=== PATIENT | female | born 1955 | race Caucasian/White ===

== ENCOUNTER → 2019-01-12 16:01 | Outpatient (CLI) | payer OTHER, SELFPAY | PROVIDERS: Referring Provider Otolaryngology Otolaryngology/Facial Plastic Surgery; Visit Provider Otolaryngology Otolaryngology/Facial Plastic Surgery | DX: J03.90 Acute tonsillitis, unspecified (principal) | CPT/HCPCS: 87070; 87077; 87186 ==

== ENCOUNTER 2021-07-19 09:36 | Emergency (ER) | payer MEDICARE, OTHER, SELFPAY ==
[2021-07-19 09:36] VITALS: BP 170/82; PULSE 59; RESP 18; TEMP 36.6; O2SAT 100; BMI 32.9
--- NOTE | 2021-07-19 09:55 | EKG12_ITS ---
Test Reason : CP Blood Pressure : / mmHG Vent. Rate : 059 BPM Atrial Rate : 059 BPM P-R Int : 174 ms QRS Dur : 092 ms QT Int : 418 ms P-R-T Axes : -11 014 017 degrees QTc Int : 413 ms Sinus bradycardia Otherwise normal ECG Confirmed by LILO PALAFOX, LESLY ([id number]), sports editor ARA SYLVESTER ([id number]) on 07/21/2021 9:10:28 AM Referred By: YONI Confirmed By:LESLY NAGY MD
--- NOTE | 2021-07-19 09:55 | EDS_ITS ---
HPI History of Present Illness Chief Complaint: Chest Pain Narrative Narrative: Patient presents with her because of left-sided chest pain/discomfort and armpit numbness that she has had for the last few days. She states the pain is been relatively constant, and waxes and wanes. It goes through to her back in the sense that she states that she has had arm pain, or pain in her wing. She denies any nausea or vomiting. No shortness of breath or diaphoresis. No exertional component. Past medical history includes hypertension but no hypercholesterolemia. She denies any family history of early AK at a young age. She denies any leg swelling. No exacerbating or alleviating factors. [facility] Medical History (Updated 07/19/21 @ 12:43 by Jose De La Cruz MD) Hypertension JULIETTE (obstructive sleep apnea) Allergy/AdvReac Type Severity Reaction Status Date / Time amoxicillin [From Augmentin] Allergy Hives Verified 07/19/21 09:39 clavulanic acid Allergy Hives Verified 07/19/21 09:39 [From Augmentin] Social History Smoking Status: Never smoker ROS ROS ED ROS Narrative Constitutional: No fever, no chills. HEENT: No sore throat. No neck pain. No loss of vision. No rhinorrhea. Cardiovascular: Positive left-sided chest pain. No palpitations. No pedal edema. Respiratory: No cough, no shortness of breath. Abdominal: No abdominal pain. No nausea. No vomiting. Genitourinary: No dysuria. No hematuria. Musculoskeletal: No myalgias. No arthralgias. Neurologic: No headaches currently. No dizziness. No lightheadedness. Skin: No rash. No change in color. Psychiatric: No depression. No anxiety. EXAM Physical Exam Narrative Exam Narrative: Afebrile. Vital signs noted. HEENT: Normocephalic. Atraumatic. PERRL, EOMI. Neck soft and supple. No point tenderness or step off. Cardiovascular: Regular rate and rhythm with intermittent bradycardia. No murmurs, rubs, or gallops appreciated. Respiratory: No tachypnea. Lungs clear to auscultation bilaterally. Gastrointestinal: Abdomen soft, nontender, with normoactive bowel sounds. No rebound or guarding. Neurological: Awake. Alert. Nonfocal, nonlateralizing. Skin: No rash. Normal color. No pallor. Musculoskeletal: No pedal edema. Full range of motion extremities. Const Vital Signs: 07/19/21 09:36 07/19/21 10:01 07/19/21 11:53 Temperature 98 F Temperature Source Temporal Pulse Rate 59 L Respiratory Rate 18 Respiratory Effort Normal Non-Labored Blood Pressure 170/82 H Blood Pressure Mean 111 Pulse Ox 100 Oxygen Delivery Method Room Air Room Air 07/19/21 11:56 Temperature Temperature Source Pulse Rate 56 L Respiratory Rate 14 Respiratory Effort Blood Pressure 134/73 H Blood Pressure Mean 93 Pulse Ox 100 Oxygen Delivery Method Room Air Heart Score History: Slightly/Non-Suspicious ECG: Normal Age: >/= 65 years Risk Factors: 1 or 2 Risk Factors Troponin: </= Normal Limit Score: 3 MDM MDM MDM Narrative Medical decision making narrative: Her EKG demonstrates sinus bradycardia at 59 bpm. There is no acute ST elevation or STEMI. On the monitor her heart rate is now in the 60s. She does take atenolol at night for hypertension. She was administered an aspirin. Chest pain work-up was pursued. Her work-up is essentially unremarkable. Normal white count of 8.1, hemoglobin normal at 16.0 if not slightly elevated. Platelet count is normal at 290. E lectrolyte panel shows chloride 108, but otherwise unremarkable. Initial high- sensitivity troponin is negative at 4. Repeat 2 hours later is also negative at 4. Chest x-ray shows no acute radiographic evidence of acute cardiopulmonary disease. At this point in time, I do feel that she can be discharged safely home with follow-up. Her blood pressure has returned to an acceptable level at 134/73. I feel she be discharged safely home with follow-up. I do feel that she has a low heart score, and additionally I feel she has been ruled out by biomarkers. Return instructions were reviewed. Disposition is discharged home in stable condition. Lab Data Attestation: I reviewed the patient's lab results. Labs: Laboratory Results - last 24 hr 07/19/21 07/19/21 07/19/21 09:45 09:45 11:39 WBC 8.1 RBC 5.06 Hgb 16.0 H Hct 46.8 MCV 92.5 MCH 31.6 MCHC 34.2 RDW Std Deviation 43.2 RDW Coeff of Steven 12.8 Plt Count 290 MPV 9.6 Immature Gran % (Auto) 0.200 Neut % (Auto) 64.7 Lymph % (Auto) 26.4 [place] % (Auto) 6.9 Eos % (Auto) 1.1 Baso % (Auto) 0.7 Absolute Neuts (auto) 5.3 Absolute Lymphs (auto) 2.14 Nucleated RBC % 0 Sodium 140 Potassium 3.8 Chloride 108 H Carbon Dioxide 27.0 Anion Gap 5 BUN 14 Creatinine 0.72 Estim Creat Clear Calc 43.77 Est GFR (MDRD) Af Amer 103 Est GFR (MDRD) Non-Af 85 BUN/Creatinine Ratio 19.3 Glucose 113 H Calcium 9.1 Troponin I High Sens 4 4 Radiography Diagnostic Testing: Clinical Impression(s) from Imaging Studies Chest X-Ray 07/19/21 10:15 IMPRESSION: No radiographic evidence of acute cardiopulmonary disease. at 1035 Reported and signed by: Jp Ann MD Electronically Signed: Jp Ann MD at 10:34 EST , Discharge Plan Triage Chief Complaint: Chest Pain ED Provider: Jose De La Cruz Dx/Rx/DC Orders Clinical Impression: Chest discomfort, Left arm numbness Instructions: ED Chest Pain, Uncertain Cause Primary Care Provider: Marek Mcbride Referrals: Marek Mcbride MD [Primary Care Provider] - 1-2 Days if not improving Disposition Disposition: Home, Self Care
[2021-07-19 10:02] LABS: Absolute Lymphocyte Count 2.14 X10^3/uL (0.83-4.51); Absolute Neutrophil Count 5.3 X10^3/uL (2.0-7.7); Basophil# 0.06 X10^3/uL; Basophil% 0.7 % (0-1); Eosinophil# 0.09 X10^3/uL; Eosinophils% 1.1 % (0-5); Hematocrit 46.8 % (37-47); Lymphocyte # 2.14 X10^3/ul (0.83-4.51); Lymphocyte % 26.4 % (19-41); Mean Corp Hgb Conc 34.2 g/dL (32-36); Mean Corpuscular Hgb 31.6 pg (27.0-32.0); Mean Corpuscular Volume 92.5 fL (81-99); Mean Platelet Vol. 9.6 fl (6.2-12.0); Monocyte# 0.56 X10^3/uL; Monocyte% 6.9 % (0-10); NRBC Flagged by Analyzer 0 % (0-5); Neutrophil # 5.25 X10^3/uL (2.7-7.7); Neutrophil % 64.7 % (47-70); Platelet Count 290 K/mm3 (150-450); RBC Distribution Width CV 12.8 % (11.6-14.6); RBC Distribution Width SD 43.2 fl (35.1-43.9); Red Blood Count 5.06 M/mm3 (4.2-5.4); White Blood Count 8.1 K/mm3 (4.4-11.0)
[2021-07-19] MEDS: Aspirin 81 MG TAB.CHEW 324 MG PO (10:11)
--- NOTE | 2021-07-19 10:15 | RAD_ITS ---
History: chest pain EXAMINATION/TECHNIQUE: XR Chest 1 View: Portable COMPARISON: None FINDINGS: LINES/DEVICES: None. LUNGS: No consolidation, edema or effusion. No pneumothorax. MEDIASTINUM AND CARDIOVASCULAR STRUCTURES: Cardiac silhouette not enlarged. Central airways and mediastinal contour are unremarkable. BONES AND SOFT TISSUES: Unremarkable. RAD/Chest 1 View (Portable) IMPRESSION: No radiographic evidence of acute cardiopulmonary disease. at 1035 Reported and signed by: Jp Ann MD Electronically Signed: Jp Ann MD at 10:34 EST ,
[2021-07-19 10:27] LABS: Anion Gap 5 (5-15); BUN 14 mg/dL (7-18); BUN/Creat Ratio 19.3 RATIO (10-20); Calcium,Total 9.1 mg/dL (8.5-10.1); Chloride 108 mmol/L (98-107); Creatinine, Serum 0.72 mg/dL (0.55-1.02); EST Glomerular Filtration Rate 85 mL/min (>60); Est Glom Filt Rate - Afr Amer 103 mL/min (>60); Estimated Creatinine Clearance 43.77 ml/min; Glucose 113 mg/dL (74-106); Potassium 3.8 mmol/L (3.5-5.1); Sodium Level 140 mmol/L (136-145); Troponin-I HS 4 pg/mL (3.0-54.0)
[2021-07-19 11:56] VITALS: BP 134/73; PULSE 56; RESP 14; O2SAT 100
[2021-07-19 12:26] LABS: Troponin-I HS 4 pg/mL (3.0-54.0)
== END 2021-07-19 12:53 | disposition home or self-care (01) ==
PROVIDERS: Emergency Provider Emergency Medicine; PCP Family Medicine; Visit Provider Emergency Medicine
DX: R07.89 Other chest pain (principal); R20.0 Anesthesia of skin
CPT/HCPCS: 71045; 80048; 84484; 85025; 93005; 99285; A4216

== ENCOUNTER 2023-11-02 23:40 | Emergency (ER) | payer MEDICARE, OTHER, SELFPAY ==
[2023-11-02 23:41] VITALS: BP 116/85; PULSE 165; RESP 18; TEMP 36.9; O2SAT 97; BMI 31.1
--- NOTE | 2023-11-02 23:55 | EKG12_ITS ---
Test Reason : TACHYCARDIA Blood Pressure : / mmHG Vent. Rate : 163 BPM Atrial Rate : 000 BPM P-R Int : 000 ms QRS Dur : 078 ms QT Int : 292 ms P-R-T Axes : 000 031 001 degrees QTc Int : 480 ms Critical Test Result: High HR Supraventricular tachycardia Nonspecific ST and T wave abnormality Abnormal ECG Confirmed by LILO PALAFOX, LESLY ([id number]), state editor TIRSO WORLEY ([id number]) on 11/03/2023 10:30:02 AM Referred By: ALBINA Confirmed By:LESLY NAGY MD
[2023-11-03] MEDS: 0.9% Normal Saline (1000mL) 1,000 ML 999 ML IV (00:08)
[2023-11-03] MEDS: Adenosine 6 MG/2 ML Syringe IV (00:11)
--- NOTE | 2023-11-03 00:20 | EKG12_ITS ---
Test Reason : REPEAT Blood Pressure : / mmHG Vent. Rate : 082 BPM Atrial Rate : 082 BPM P-R Int : 172 ms QRS Dur : 084 ms QT Int : 380 ms P-R-T Axes : 043 039 029 degrees QTc Int : 443 ms Normal sinus rhythm Normal ECG Confirmed by LESLY NAGY MD ([id number]), field map editor TIRSO WORLEY ([id number]) on 11/03/2023 10:30:25 AM Referred By: ALBINA Confirmed By:LESLY NAGY MD
[2023-11-03 00:34] LABS: Absolute Lymphocyte Count 3.52 X10^3/uL (0.83-4.51); Absolute Neutrophil Count 7.2 X10^3/uL (2.0-7.7); Basophil# 0.09 X10^3/uL; Basophil% 0.8 % (0-1); Eosinophil# 0.18 X10^3/uL; Eosinophils% 1.5 % (0-5); Hemoglobin 15.1 g/dL (12.0-15.0); Lymphocyte # 3.52 X10^3/ul (0.83-4.51); Lymphocyte % 29.7 % (19-41); Mean Corp Hgb Conc 34.3 g/dL (32-36); Mean Corpuscular Hgb 31.1 pg (27.0-32.0); Mean Corpuscular Volume 90.7 fL (81-99); Mean Platelet Vol. 9.6 fl (6.2-12.0); Monocyte# 0.75 X10^3/uL; Monocyte% 6.3 % (0-10); NRBC Flagged by Analyzer 0 % (0-5); Neutrophil # 7.18 X10^3/uL (2.7-7.7); Neutrophil % 60.6 % (47-70); Platelet Count 367 K/mm3 (150-450); RBC Distribution Width CV 12.9 % (11.6-14.6); RBC Distribution Width SD 42.5 fl (35.1-43.9); Red Blood Count 4.85 M/mm3 (4.2-5.4); White Blood Count 11.9 K/mm3 (4.4-11.0)
[2023-11-03 00:41] VITALS: BP 100/57; PULSE 76; RESP 17; O2SAT 96
[2023-11-03 00:41] LABS: Anion Gap 9 (5-15); BUN 12 mg/dL (7-18); BUN/Creat Ratio 12.8 RATIO (10-20); Calcium,Total 9.2 mg/dL (8.5-10.1); Chloride 104 mmol/L (98-107); Creatinine, Serum 0.94 mg/dL (0.55-1.02); EST Glomerular Filtration Rate 63 mL/min (>60); Est Glom Filt Rate - Afr Amer 76 mL/min (>60); Estimated Creatinine Clearance 55.07 ml/min; Glucose 184 mg/dL (74-106); Magnesium 1.7 mg/dL (1.6-2.6); Potassium 3.6 mmol/L (3.5-5.1); Sodium Level 135 mmol/L (136-145); Thyroid Stim Hormone (TSH) 2.44 uIU/mL (0.358-3.74)
[2023-11-03 01:00] VITALS: BP 100/57; PULSE 77; RESP 21; O2SAT 97
--- NOTE | 2023-11-03 02:15 | EX.ED.DYSGE1 ---
HPI History of Present Illness Chief Complaint: Palpitations Informant: patient Narrative Narrative: Patient is a 68-year-old female with past medical history of hypertension and obstructive sleep apnea. She states a few hours prior to arrival she was resting when all of a sudden she began to feel her heart was racing. She states that there has been no excessive activity she denies any excessive stimulant use or illicit drug use. She states she rested and waited hoping the symptoms would resolve with a have not done so and therefore she comes in for evaluation [facility] Medical History (Updated 11/05/23 @ 06:[address] Andrei Cruz, DO) JULIETTE (obstructive sleep apnea) Hypertension Home Medications ?Medication ?Instructions ?Recorded ?Last Taken ?Type atenolol 50 mg tablet 50 mg PO DAILY 11/02/23 Unknown History sertraline 100 mg tablet 100 mg PO DAILY 11/02/23 Unknown History Allergy/AdvReac Type Severity Reaction Status Date / Time amoxicillin (From Augmentin) Allergy Hives Verified 11/02/23 23:43 clavulanic acid (From Allergy Hives Verified 11/02/23 23:43 Augmentin) Social History Smoking Status: Never smoker ROS ROS ED Constitutional Constitutional ED: Denies chills or fever(s) Eyes Eyes: Denies change in vision ENT ENT ED: Denies sore throat Cardiovascular Cardiovascular: Reports palpitations and racing heartbeat; Denies chest pain Respiratory/Chest Respiratory/Chest: Denies cough or dyspnea Gastrointestinal Gastrointestinal: Denies abdominal pain, diarrhea, nausea or vomiting Genitourinary Genitourinary ED: Denies dysuria Musculoskeletal Musculoskeletal: Denies myalgias Integumentary Denies rash Neurologic Neurologic: Denies headache(s), paresthesias or weakness Hematologic/Lymphatic Hematologic/Lymphatic: Denies easy bleeding or easy bruising EXAM Physical Exam Const Vital Signs: 11/02/23 23:41 11/02/23 23:53 11/03/23 00:41 Temperature 98.5 F Temperature Source Temporal Pulse Rate 165 H 76 Respiratory Rate 18 17 Respiratory Effort Short of Breath Blood Pressure 116/85 H 100/57 L Blood Pressure Mean 95 71 Pulse Ox 97 96 Oxygen Delivery Method Room Air Room Air 11/03/23 01:00 Temperature Temperature Source Pulse Rate 77 Respiratory Rate 21 H Respiratory Effort Blood Pressure 100/57 L Blood Pressure Mean 71 Pulse Ox 97 Oxygen Delivery Method Room Air Positive well nourished and well developed General Appearance ED: well developed; Negative for pallor HEENT Reports moist mucous membranes HEENT Narrative: No tongue or lip swelling no oral lesions no airway edema or compromise Eyes PERRL and EOMs intact bilaterally General Eye ED: Negative for pale conjunctiva or scleral icterus Neck supple and no JVD Chest Wall palpation of chest normal Resp normal respiratory effort and clear to auscultation bilaterally Cardio regular rhythm Rate: other Other Details: Tachycardic rate with regular rhythm Radial and carotid pulses are equal and symmetric No carotid bruit noted GI normal to inspection, nondistended, normoactive bowel sounds, non-tender, non-distended and no masses Auscultation: normoactive bowel sounds Palpation: soft Extremity normal to inspection Extremity Narrative: No asymmetric edema no pitting edema negative Homans' sign bilaterally Neuro oriented x3, CN's II-XII intact bilaterally and no sensory deficits noted Sensorium / Orientation: alert Motor Exam: strength 5/5 throughout Psych mental status grossly normal Skin no rashes or lesions noted and no wounds General Skin Exam: Negative for jaundice or pallor MDM MDM MDM Narrative Medical decision making narrative: Patient arrived to the ER tachycardic and EKG displayed a narrow complex tachycardic regular rhythm without P waves most consistent with supraventricular tachycardia. Patient was given 6 mg of IV adenosine and had spontaneous cardioversion to normal sinus rhythm. In order to ensure that there is no obvious cause for the SVT such as acute blood loss anemia acute kidney injury or severe electrolyte abnormality a basic workup was obtained. I felt no need to check a talk screen as patient denied any history of illicit drug use or excessive stimulant use. Blood work revealed no clinically significant findings and patient was kept in the ER for multiple hours and there was no return of the SVT. Therefore at this time as she is hemodynamically stable with negative workup and no repeat dysrhythmia she is otherwise safe for discharge and can follow-up with cardiology on an outpatient basis History & Record Review Discussion w/independent historian: Patient Lab Data Attestation: I reviewed the patient's lab results. Labs: Laboratory Results - last 24 hr 11/03/23 00:01 WBC 11.9 H RBC 4.85 Hgb 15.1 H Hct 44.0 MCV 90.7 MCH 31.1 MCHC 34.3 RDW Std Deviation 42.5 RDW Coeff of Steven 12.9 Plt Count 367 MPV 9.6 Immature Gran % (Auto) 1.100 H Neut % (Auto) 60.6 Lymph % (Auto) 29.7 [place] % (Auto) 6.3 Eos % (Auto) 1.5 Baso % (Auto) 0.8 Absolute Neuts (auto) 7.2 Absolute Lymphs (auto) 3.52 Nucleated RBC % 0 Sodium 135 L Potassium 3.6 Chloride 104 Carbon Dioxide 22.0 Anion Gap 9 BUN 12 Creatinine 0.94 Estim Creat Clear Calc 55.07 Est GFR (MDRD) Af Amer 76 Est GFR (MDRD) Non-Af 63 BUN/Creatinine Ratio 12.8 Glucose 184 H Calcium 9.2 Magnesium 1.7 TSH 2.44 Discharge Plan Triage Chief Complaint: Palpitations ED Provider: Andrei Cruz Dx/Rx/DC Orders Clinical Impression: Supraventricular tachycardia, Hypertension, Obstructive sleep apnea Instructions: ED Understanding Supraventricular Tachycardia (SVT) Prescriptions: No Action sertraline 100 mg tablet 100 mg PO DAILY atenolol 50 mg tablet 50 mg PO DAILY Primary Care Provider: Marek Mcbride Referrals: Alvaro Valencia MD [Med Staff - Active Staff] - Marek Mcbride MD [Primary Care Provider] - Activity Restrictions/Additional Instructions: Please follow-up with cardiology for repeat evaluation and return to the ER should you have any further concerns or return of symptoms Print Language: Gambian Disposition Disposition: Home, Self Care Discharge Date/Time: 11/03/23 02:36
[2023-11-03 02:35] VITALS: BP 103/53; PULSE 64; RESP 16; TEMP 37.2; O2SAT 97
== END 2023-11-03 02:36 | disposition home or self-care (01) ==
PROVIDERS: Emergency Provider Emergency Medicine; PCP Family Medicine; Visit Provider Emergency Medicine
DX: I47.10 Supraventricular tachycardia, unspecified (principal); G47.33 Obstructive sleep apnea (adult) (pediatric); I10 Essential (primary) hypertension; Z79.899 Other long term (current) drug therapy
CPT/HCPCS: 80048; 83735; 84443; 85025; 93005; 96361; 96374; 99283; A4216; J0153